=== PATIENT | female | born 1960 | race Hispanic/Latino ===

== ENCOUNTER → 2023-09-30 10:33 | Outpatient (REF) | payer BC, SELFPAY ==
[2023-09-30 11:34] LABS: Erythrocyte Sed Rate 5 mm/hour (0-20)
[2023-09-30 12:39] LABS: C-Reactive Protein < 5.00 mg/L (0.0-10.00)
[2023-09-30 12:41] LABS: ALT (SGPT) 18 U/L (0-35); AST (SGOT) 19 U/L (14-36); Albumin 4.6 g/dl (3.5-5.0); Alkaline Phosphatase 78 U/L (38-126); Blood Urea Nitrogen 13 mg/dl (7-17); Calcium 9.4 mg/dl (8.4-10.2); Carbon Dioxide 25 mmol/L (22-30); Chloride 108 mmol/L (98-107); Glucose 86 mg/dl (70-99); HDL Cholesterol 50 mg/dl; LDL Cholesterol, Calculated 142 mg/dl; Potassium 4.4 mmol/L (3.5-5.1); Sodium 140 mmol/L (135-145); Total Bilirubin 0.9 mg/dl (0.2-1.3); Total Cholesterol 220 mg/dl (50-199); Total Protein 6.5 g/dl (6.3-8.2); Triglyceride 142 mg/dl (10-149); Very Low Density Lipoprotein 28 mg/dl (0-30); eGFR > 60.00
[2023-09-30 13:09] LABS: TSH Reflex To Free T4 3.28 uIU/ml (0.47-4.68)
[2023-09-30 13:11] LABS: Glycohemoglobin (HgbA1c) 5.7 % (4.0-5.6)
[2023-09-30 13:28] LABS: Vitamin B12 285 pg/ml (239-931)
[2023-10-02 14:17] LABS: Lyme Antibody Screen, EIA Negative (Negative); Rheumatoid Agglutinin Less Than 10 IU (<10 IU)
[2023-10-02 21:00] LABS: Hepatitis C Antibody Negative (Negative)
== END ==
LOC: REG 10:33
PROVIDERS: ATTENDING PHYSICIAN Internal Medicine
DX: M79.18 Myalgia, other site (principal); E78.00 Pure hypercholesterolemia, unspecified; M25.50 Pain in unspecified joint; Z11.59 Encounter for screening for other viral diseases; R73.9 Hyperglycemia, unspecified
CPT/HCPCS: 36415; 80053; 80061; 82607; 83036; 84443; 85652; 86140; 86430; 86618; 86803

== ENCOUNTER → 2024-04-09 15:02 | Outpatient (REF) | payer BC, SELFPAY | LOC: WDC 15:02 | PROVIDERS: ATTENDING PHYSICIAN Internal Medicine | DX: Z12.31 Encounter for screening mammogram for malignant neoplasm of breast (principal) | CPT/HCPCS: 77063; 77067 ==

== ENCOUNTER 2024-08-23 10:31 | Inpatient (IN) | payer BC, SELFPAY ==
[2024-08-21 17:14] VITALS: BP 140/87
--- NOTE | 2024-08-21 18:59 | ED.GENMED ---
History of Present Illness
General
Chief Complaint: Vascular Symptoms
Time Seen by Provider: 08/21/24 18:59
History of Present Illness
History of Present Illness:
TIME OF INITIAL EVALUATION
- 7 PM
REVIEW OF OLD RECORDS
- Patient has history of high blood pressure, hyperlipidemia
RADIOLOGY
- Ultrasound imaging obtained
CHIEF COMPLAINT(S)
Right leg numbness and weakness.
HISTORY OF PRESENT ILLNESS
The patient is a 64-year-old female presenting with right leg numbness and weakness. The symptoms began two days ago with the patient describing her leg as feeling 'asleep' and experiencing difficulty feeling the gas pedal while driving. She reports
that pressing the gas pedal results in cramping in the leg. The numbness and weakness extend from the foot up to the hip, but the leg is not painful. On physical examination, there is noted weakness in dorsiflexion, described by the patient as a
lack of strength to pull back towards the nose. She also describes a flopping sensation when walking. She denies any lower extremity swelling, chest pain, abdominal pain, or trouble breathing. She reports a family history of heart problems and
aneurysms, specifically on her mothers side. The patient has not experienced similar symptoms previously and is not aware of any diabetes mellitus.
ADDITIONAL HISTORY OBTAINED FROM SOURCES OTHER THAN THE PATIENT
According to the patient, a nurse advised her to seek emergency care due to her symptoms and her family history of cardiovascular issues.
PHYSICAL EXAM
- Neurological: The patient has clear motor deficit in L5 distribution in the right lower extremity, mild sensory deficits to the anterior aspect of the right ankle, good strength in an S1 distribution and there is very good strength proximally
- Vascular: Pulses in dorsal pedal and posterior tibial regions are palpable and strong bilaterally.
- General: Well appearing in no distress
- HEENT: Moist oral mucosa
- Cardiovascular: No murmurs, normal heart rate, regular rhythm, No chest wall tenderness
- Pulmonary: No respiratory distress, breath sounds are clear and equal
- Abdomen: Soft with no peritoneal signs, no tenderness
- Neurologic: Excellent strength all extremities, no coordination deficits
- Psychiatric: Appropriate mental status, normal insight and judgement
- Extremities: Nontender, no edema, moves all extremities equally
- Skin: No rash, no lesions
DIFFERENTIAL DIAGNOSIS
The Differential Diagnosis includes, in no particular order and is not limited to:
1. Lumbar radiculopathy
2. Peripheral neuropathy
3. Lumbar spinal stenosis
4. Herniated lumbar disc
5. Foot drop due to peroneal nerve injury
6. Transient ischemic attack (although unlikely given symptoms)
7. Lumbosacral plexopathy
8. Multiple sclerosis
9. Peripheral artery disease (excluded by examination findings)
10. Functional neurological disorder
RADIOLOGY
- CT head shows no acute abnormality; ultrasound right lower extremity shows no DVT
EKG
- Not indicated
LABS
- CBC unremarkable, chemistries unremarkable
UPDATE
-ASSESSMENT
Patient presents with right leg numbness and weakness for two days without pain but with weakness in dorsiflexion, suggesting possible neurologic etiology.
DISPOSITION
Admission to the hospital service planned for further evaluation and management.
MANAGEMENT OF THE PATIENTS CARE WAS DISCUSSED WITH
Dr. Manriquez and Dr. Canela, on-call neurosurgeon, regarding imaging and admission plan.
MEDICATION RECONCILIATION
Administered Decadron 10 milligrams IV once, then planned for 4 milligrams every six hours.
MEDICAL DECISION MAKING
1. Number & Complexity of Problems:
- Considered differential diagnoses include lumbar radiculopathy, peripheral neuropathy, lumbar spinal stenosis, herniated lumbar disc, foot drop due to peroneal nerve injury, transient ischemic attack, and multiple sclerosis.
2. Data Reviewed:
- Discussions with Dr. Manriquez and Dr. Canela regarding imaging and admission.
3. Risk: High-risk neurologic evaluation considered due to symptoms and possible etiologies.
PATIENT EDUCATION AND COUNSELING
Discussed the possibility of staying at [facility] for MRI tomorrow and the plan for IV steroid administration.
PATHOLOGIES TO CONSIDER
- Lumbar radiculopathy
- Peripheral neuropathy
- Spinal pathology (herniated disc, stenosis)
- Neurologic emergencies (possible multiple sclerosis onset, transient ischemic attack)
FOLLOW-UP INSTRUCTIONS
Pending MRI and further evaluation following admission, with continued neurologic observation.
Past History
Past History
ED Past Medical History: HTN and Other (Ovarian cyst, migraines)
ED Past Surgical History: Cholecystectomy, and Gynecological (ovarian surgery)
Social History
Tobacco: Non-smoker
Alcohol: None
Drug: None
Personal:
Living: with family
Employment: Employed
Phy Exam
Physical Exam
Physical Exam:
See HPI
Course
Orders/Labs/Results
Orders:
Orders
08/21/24 17:17
US Periph Venous LOWER Ext RT Urgent
Comment:
Reason For Exam: calf pain
08/21/24 19:36
Dexamethasone Sod Phosphate [Decadron] 10 mg IV NOW STA
08/21/24 19:48
CT Head W/o Iv Contrast Urgent
Comment:
Reason For Exam: RLE weakness
08/21/24 19:51
Basic Metabolic Panel Urgent
Complete Blood Count/With Diff Urgent
Abnormal Lab Results
08/21/24
19:51
MCV 79.2 L fL
(81.0-99.0)
MCH 26.1 L pg
(27.0-31.0)
MCHC 32.9 L g/dL
(33.0-37.0)
MPV 11.0 H fL
(7.4-10.4)
Absolute Monos (auto) 0.7 H 10^3/uL
(0.1-0.6)
Monocytes % 9.4 H %
(1.7-9.3)
Chloride 112 H mmol/L
(98-107)
BUN 24 H mg/dl
(7-17)
Glucose 112 H mg/dl
(70-99)
08/21/24 19:51
08/21/24 19:51
Vital Signs
Initial and Last Documented VS:
Initial Vital Signs
Temp Pulse Resp BP Pulse Ox
36.9 C 84 16 140/87 98
08/21/24 17:14 08/21/24 17:14 08/21/24 17:14 08/21/24 17:14 08/21/24 17:14
Last Documented Vital Signs
Temp Pulse Resp BP Pulse Ox
36.9 C 75 18 149/85 98
08/21/24 17:14 08/21/24 20:21 08/21/24 20:21 08/21/24 20:21 08/21/24 20:21
*Pulse Oximetry
SaO2: 98
Oxygen Mode of Delivery: Room air
Patient hypoxic: no
*Critical Care Note
Total Time (30-74mins, 75-104mins- exclusive of procedures): Not Applicable
ED Attending Note
-
Portions of this chart may have been created with voice recognition software.� Occasional wrong word or��sound alike� substitutions may have occurred due to the inherent limitations of voice recognition software.
Discharge Plan
Departure
Patient Disposition: Admit
Date of Disposition: 08/21/24
Time of Disposition: 20:33
Presentation/result/management discussed w/ accepting MD/DO: Hospitalist
Patient with high blood pressure during this ER visit?: Yes
Discharge Problem:
Right peroneal nerve palsy
Prescriptions:
No Action
multivitamin [One-A-Day Essential] 1 EACH tablet
1 ea PO DAILY
atorvastatin 40 MG tablet
40 mg PO QPM
famotidine [Pepcid AC] 10 MG tablet
10 mg PO HS
ascorbic acid (vitamin C) [Vitamin C] 500 MG tablet
500 mg PO QPM
cholecalciferol (vitamin D3) [Vitamin D3] 400 UNITS tablet
400 unit PO HS
amlodipine [Norvasc] 10 mg Tablet
10 mg PO QPM
Referrals:
Pascual Chowdhury DO [Family Provider, Internal Medicine]
Interventions
Interventions:
*Risk Screen - Suicide Last Done: 08/21/24 20:22
*General Assessment Last Done: 08/21/24 20:22
*Neglect/Abuse Screening Last Done: 08/21/24 20:22
*ED- Fall Risk Assessment Last Done: 08/21/24 20:22
*ED COVID-19 Vaccine History Last Done: 08/21/24 20:22
ED- Cardiac Assessment Last Done: 08/21/24 20:23
ED- Pulmonary Assessment Last Done: 08/21/24 20:23
ED-Peripheral Vascular Assessment Last Done: 08/21/24 20:23
ED-Skin Assessment Last Done: 08/21/24 20:23
Discharge Date and Time
Print Language: SLOVAK
[2024-08-21] MEDS: DECADRON 10 MG IV (19:54)
[2024-08-21 19:56] VITALS: BMI 26.0
[2024-08-21 19:58] LABS: % Basophils 0.4 % (0-2); % Eosinophils 2.3 % (0-6); % Immature Granulocytes 0.3 % (0-0.5); % Lymphocytes 25.6 % (20.5-51.1); % Monocytes 9.4 % (1.7-9.3); Absolute Eosinophils 0.2 10^3/uL (0-0.7); Absolute Lymphocytes 1.8 10^3/uL (1.2-3.4); Absolute Monocytes 0.7 10^3/uL (0.1-0.6); Absolute Neutrophils 4.3 10^3/uL (1.4-6.5); Hematocrit 41.9 % (37.0-47.0); Hemoglobin 13.8 g/dL (12.0-16.0); Mean Corp Hgb Conc. 32.9 g/dL (33.0-37.0); Mean Corpuscular Hgb 26.1 pg (27.0-31.0); Mean Corpuscular Volume 79.2 fL (81.0-99.0); Nucleated Red Blood Cells % 0 %; Platelet Count 159 10^3/uL (130-400); Red Blood Cell Count 5.29 10^6/uL (4.20-5.40); Red Cell Dist. Width 13.7 % (11.5-14.5); White Blood Cell Count 6.9 10^3/uL (4.8-10.8)
[2024-08-21 20:18] LABS: Blood Urea Nitrogen 24 mg/dl (7-17); Calcium 9.3 mg/dl (8.4-10.2); Carbon Dioxide 25 mmol/L (22-30); Chloride 112 mmol/L (98-107); Estimated Creatinine Clearance 63 ml/min; Glucose 112 mg/dl (70-99); Potassium 4.2 mmol/L (3.5-5.1); Sodium 142 mmol/L (135-145); eGFR > 60.00
[2024-08-21 20:21] VITALS: BP 149/85
--- NOTE | 2024-08-21 21:17 | HPS.HSE ---
Family Physician
-
Family Physician: Pascual Chowdhury
Chief Complaint
-
tingling
History of Present Illness
64-year-old female past medical history of hypertension, hyperlipidemia, migraines presenting with bilateral numbness and tingling in the lower extremities. 3 days ago she developed numbness and tingling in her right toes that extends up the
lateral part of her calf to the lateral part of the knee. She has a foot drop and difficulty lifting her foot up off the gas pedal. Symptoms are getting worse. She notes that although the right side is worse he also has some tingling in the left
toes but denies any weakness or progression of symptoms on that side.
She did have some back pain a few days ago but denies any chronic back pain. She denies any back pain currently. Denies any fevers or chills. Denies any weight loss. Denies any numbness or tingling in the genital or anal area.
She has been having urinary incontinence for the past year.
There is no family history of neurological problems such as multiple sclerosis.
Denies smoking or alcohol use.
Medical History
Past Medical History
Past Medical History: Reports Other (hypertension, hyperlipidemia, migraines)
Past Surgical History: Reports None
Social History
Tobacco: Non-smoker
Alcohol: None
Drug: None
Family History
Family History: Not pertinent
Allergies / Home Medications
Allergies reflects when Allergies were last updated in [employer].
Home Medications with original date entered in [facility]
Allergy/Medication List:
Allergies
Allergy/AdvReac Type Severity Reaction Status Date / Time
No Known Allergies Allergy Verified 08/21/24 17:17
Home Medications
multivitamin (One-A-Day Essential tablet) 1 ea PO DAILY 06/08/15
ascorbic acid (vitamin C) 500 mg tablet (Vitamin C) 500 mg PO QPM 07/02/21
atorvastatin 40 mg tablet 40 mg PO QPM 07/02/21
cholecalciferol (vitamin D3) 10 mcg (400 unit) tablet (Vitamin D3) 400 unit PO HS 07/02/21
famotidine 10 mg tablet (Pepcid AC) 10 mg PO HS 07/02/21
amlodipine 10 mg tablet (Norvasc) 10 mg PO QPM 08/21/24
Review of Systems
-
History Source: Patient
A 12 point ROS was completed and negative except as noted: Yes
Constitutional: Reports No Symptoms
EENT: Reports No Symptoms
Respiratory: Reports No Symptoms
Cardiac: Reports No Symptoms
Abdomen/GI: Reports No Symptoms
: Reports No Symptoms
Musculoskeletal: Reports No Symptoms
Skin: Reports No Symptoms
Neurological: Reports See HPI
Endocrine: Reports No Symptoms
Hematologic/Lymphatic: Reports No Symptoms
Psych: Reports No Symptoms
Physical Exam
Vital Signs
Vital Signs
Temp Pulse Resp BP Pulse Ox
98.4 F 75 18 149/85 98
08/21/24 17:14 08/21/24 20:21 08/21/24 20:21 08/21/24 20:21 08/21/24 20:21
Physical Exam
General: Well Developed, Well Nourished and No Apparent Distress
HEENT: NormoCephalic, Moist mucous membranes and Atraumatic
Respiratory: Clear
Cardiac: S1/S2 and Regular Rhythm; No Murmur or Rub
GI: Soft, Non Tender, Non Distended and Normal Bowel Sounds; No Organomegaly
Rectal: Deferred by Provider
Musculoskeletal: No Clubbing, No Cyanosis and No Edema
Skin: No Rash
Neuro: Nonfocal/grossly intact and Other (right foot drop )
Laboratory Results
-
08/21/24 19:51
08/21/24 19:51
Data Reviewed
-
Lab Data: Labs Reviewed by me
Old Records: Reviewed
Impression/Plan
-
IMPRESSION:
PLAN:
# Progressive bilateral lower extremity numbness and tingling/with weakness of dorsiflexion of right foot
-Foot drop on examination
- Initially thought could be peroneal nerve palsy on the right however patient later admitted to left-sided symptoms as well although milder and without weakness on that side
- Given recent back pain, urinary incontinence for the past year entertaining diagnoses such as lumbar spinal stenosis versus multiple sclerosis
- Check MRI lumbar spine with and without contra
-Check TSH, B12
- Neurology consulted
# Urinary incontinence for the past year
- May be related to above process
- Bladder scan protocol
Essential hypertension
- Continue amlodipine
Hyperlipidemia
- Continue statin
Migraines
Full code
DVT prophylaxis�SCDs
Regular diet
[2024-08-21 22:22] VITALS: BP 159/74
[2024-08-21] MEDS: PEPCID 10 MG PO (22:56)
[2024-08-21] MEDS: VITAMIN D3 (cholecalciferol) 10 MCG PO (22:57)
--- NOTE | 2024-08-22 03:05 | PTCARENOTE ---
Pt aaox3 able to make his needs known,denies pain.OOB with 1 person assist.Pt oriented to room & call dudley in reach.Plan of care continued on pt.
[2024-08-22 03:23] VITALS: BP 130/80
[2024-08-22] MEDS: TYLENOL 650 MG PO ×2 (06:21→17:14)
[2024-08-22 07:15] VITALS: BP 131/82
--- NOTE | 2024-08-22 08:01 | CON.NEURO ---
Consultation
Order
Date of Consultation: 08/22/24
Requesting Provider: Roland Monk MD
Reason for Consult: Numbness in the toes, weakness
Neurology Consultation Note.
HPI: This is a 64-year-old right-handed woman who presented to the [facility] on 08/21/2024 with motor and sensory symptoms.
The patient reports that last Monday, her right foot started feeling 'asleep, heavy, and numb'. The sensation progressively ascended up her left lateral lower leg. By Monday, she noticed foot drop while walking. On Monday morning, the symptoms
worsened, with increased heaviness, numbness, and weakness in her right foot. She experienced difficulty feeling the car pedal properly while driving and had cramps. The numbness in her right leg has been constant since onset. She also reports
numbness in the toes of both feet, which started on the same day as her right foot symptoms. The patient denies any issues with balance, tingling or numbness in her hands, back pain, radicular symptoms, changes in swallowing, vision or breathing
difficulties. No falls, recent vaccination, URI or diarrheal illness.
The patient mentions having urinary incontinence for the past year, particularly when sneezing or coughing.
ER VS: 140/87, 84, afebrile
EKG:
PDMP:none
Labs: Glucose�112, MCV�79.2
CT head wo contrast
LS spine MRI w/wo joseph-mild bilateral L4-5 foraminal narrowing.
MAR: Dexamethasone 10 mg given on 08/21/24 at 19:54.
PMH: HTN, DLP, IGT, vit D deficiency
PSH: Bilateral cataract surgery, left foot ORIF
SH: , lives with family, works at [employer]; no history excessive alcohol use,
FH: mother at 91, had hammertoes;Brother from aortic aneurysm
All:NKDA
ROS: Constitutional: Negative. Negative for chills, fever and unexpected weight change.
HENT: Negative for ear pain, hearing loss, tinnitus and trouble swallowing.
Eyes: Negative. Negative for photophobia, pain and visual disturbance.
Respiratory: Negative for cough, choking and shortness of breath.
Cardiovascular: Negative for chest pain, palpitations and leg swelling.
Gastrointestinal: Negative for abdominal pain and vomiting.
Endocrine: Negative. Negative for cold intolerance.
Genitourinary: Positive for chronic intermittent urinary incontinence
Musculoskeletal: Negative for back pain, gait problem, neck pain and neck stiffness.
Skin: Negative for rash.
Allergic/Immunologic: Negative. Negative for immunocompromised state.
Neurological: Positive for numbness and heaviness in right foot and leg, numbness in toes of left foot. Negative for tingling or numbness in hands.
Psychiatric/Behavioral: Negative for behavioral problems, confusion and hallucinations.
General: Well developed. In no acute distress.
Cardio: Regular rate and rhythm without murmur. Extremities are without cyanosis or edema.
Neuro:
Mental Status: Alert, oriented to person, place, and date. Normal attention and recall. Good fund of knowledge. Follows complex requests across the midline. Comprehension, naming, and repetition intact. Immediate and delayed recall 3/3.
Cranial Nerves: Pupils are equally round. EOMs full. Visual vasquez full to confrontation. No ptosis. No nystagmus. V1-V3 intact to light touch and pinprick bilaterally, symmetric. Face symmetric. Normal hearing AU. The palate elevated well.
SCMs and traps 5/5. Tongue midline. No dysarthria.
Motor: Normal bulk and tone. No pronator or arm drift. Strength 5/5 throughout except for right dorsiflexion and right foot eversion 4 out of 5. No clonus.
Reflexes: 2+ throughout the upper extremities and 2+knees. AJs-limited exam. Plantar responses flexor bilaterally.
Sensory: Normal pinprick, vibration and JPS.
Coordination: No dysmetria or tremor.
Gait: deferred
Bilateral pes cavus and hammertoes
Assessment and Plan:
I. 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 Differential diagnosis includes autoimmune versus metabolic less likely toxic or infectious.
II. Bilateral pes cavus and hammertoes
III.HTN
-Telemetry monitoring
-Fall precautions
-CSF(cell count, protein, glucose, cx)
-PVR
-No indications for steroid therapy
-MRI T spine w/wo joseph
-Please follow-up requested serologies
-PT
-May consider immunotherapy based on CSF results
-DVT prophylaxis.
I personally reviewed all radiology and labs along with past medical records pertinent to current medical problems. Total time spent in patient care is 60 minutes.
Thank you for allowing us to participate in the care of this patient. We will continue to follow. Please do not hesitate to contact us with any questions or concerns.
Subjective/Objective
Subjective Data
Date of Service: August 22, 2024
Objective Data
Vital Signs
Temp Pulse Resp BP Pulse Ox
36.5 C 89 14 131/82 94
08/22/24 07:15 08/22/24 07:15 08/22/24 07:15 08/22/24 07:15 08/22/24 07:15
Sodium 142 mmol/L (135-145) 08/21/24 19:51
Potassium 4.2 mmol/L (3.5-5.1) 08/21/24 19:51
BUN 24 mg/dl (7-17) H 08/21/24 19:51
Glucose 112 mg/dl (70-99) H 08/21/24 19:51
Calcium 9.3 mg/dl (8.4-10.2) 08/21/24 19:51
Vitamin B12 Cancelled 08/22/24 06:00
Patient Allergies
No Known Allergies Allergy (Verified 08/21/24 17:17)
Medications
-
Active Medications
Generic Name Dose Route Start Last Admin
Trade Name Freq PRN Reason Stop Dose Admin
Acetaminophen 650 mg 08/22/24 05:57 08/22/24 06:21
Acetaminophen 325 Mg Tablet PO 09/19/24 05:56 650 mg
Q4HPRN PRN Administration
mild pain/MARTIN/temp>100.5
Amlodipine Besylate 10 mg 08/22/24 18:00
Amlodipine 10 Mg Tablet PO 09/19/24 17:59
QPM PARIS
Ascorbic Acid 500 mg 08/22/24 18:00
Ascorbic Acid 500 Mg Tablet PO 09/19/24 17:59
QPM PARIS
Atorvastatin Calcium 40 mg 08/22/24 18:00
Atorvastatin (Lipitor) 40 Mg Tablet PO 09/19/24 17:59
QPM PARIS
Cholecalciferol 10 mcg 08/21/24 22:12 08/21/24 22:57
Cholecalciferol (Vitamin D3) 10 Mcg Tablet (400 Units) PO 09/18/24 22:11 10 mcg
HS PARIS Administration
Famotidine 10 mg 08/21/24 22:12 08/21/24 22:56
Famotidine 20 Mg Tablet PO 09/18/24 22:11 10 mg
HS PARIS Administration
Multivitamins Therapeutic 1 tablet 08/22/24 08:00
Multivitamin Tablet PO 09/19/24 07:59
DAILY PARIS
Sodium Chloride 0 flush 08/21/24 22:00
Sodium Chloride 0.9% (Flush) Syringe IV 09/18/24 21:59
PER PROTOCOL PARIS
Home Medications
�Medication �Instructions �Recorded
multivitamin (One-A-Day Essential 1 ea PO DAILY 06/08/15
tablet)
ascorbic acid (vitamin C) 500 mg 500 mg PO QPM 07/02/21
tablet (Vitamin C)
atorvastatin 40 mg tablet 40 mg PO QPM 07/02/21
cholecalciferol (vitamin D3) 10 400 unit PO HS 07/02/21
mcg (400 unit) tablet (Vitamin D3)
famotidine 10 mg tablet (Pepcid AC) 10 mg PO HS 07/02/21
amlodipine 10 mg tablet (Norvasc) 10 mg PO QPM 08/21/24
[2024-08-22 09:06] LABS: % Basophils 0.2 % (0-2); % Immature Granulocytes 0.3 % (0-0.5); % Lymphocytes 8.5 % (20.5-51.1); % Monocytes 2.2 % (1.7-9.3); % Neutrophils 88.8 % (42.2-75.2); Absolute Lymphocytes 0.8 10^3/uL (1.2-3.4); Absolute Monocytes 0.2 10^3/uL (0.1-0.6); Absolute Neutrophils 8.1 10^3/uL (1.4-6.5); Hematocrit 43.1 % (37.0-47.0); Hemoglobin 14.1 g/dL (12.0-16.0); Mean Corp Hgb Conc. 32.7 g/dL (33.0-37.0); Mean Corpuscular Hgb 25.5 pg (27.0-31.0); Mean Corpuscular Volume 77.8 fL (81.0-99.0); Mean Platelet Volume 10.9 fL (7.4-10.4); Nucleated Red Blood Cells % 0 %; Platelet Count 173 10^3/uL (130-400); Red Blood Cell Count 5.54 10^6/uL (4.20-5.40); Red Cell Dist. Width 13.3 % (11.5-14.5); White Blood Cell Count 9.1 10^3/uL (4.8-10.8)
[2024-08-22 09:41] LABS: ALT (SGPT) 19 U/L (0-35); AST (SGOT) 19 U/L (14-36); Albumin 4.4 g/dl (3.5-5.0); Alkaline Phosphatase 64 U/L (38-126); Blood Urea Nitrogen 19 mg/dl (7-17); Calcium 9.6 mg/dl (8.4-10.2); Carbon Dioxide 21 mmol/L (22-30); Chloride 114 mmol/L (98-107); Estimated Creatinine Clearance 73 ml/min; Glucose 181 mg/dl (70-99); Potassium 4.1 mmol/L (3.5-5.1); Sodium 142 mmol/L (135-145); Total Bilirubin 0.5 mg/dl (0.2-1.3); Total Protein 6.6 g/dl (6.3-8.2); eGFR > 60.00
[2024-08-22] MEDS: THERAGRAN 1 TABLET PO (09:45)
[2024-08-22 10:33] LABS: C-Reactive Protein < 5.00 mg/L (0.0-10.00)
[2024-08-22 10:53] LABS: TSH Reflex To Free T4 0.87 uIU/ml (0.47-4.68)
[2024-08-22 11:12] LABS: Vitamin B12 349 pg/ml (239-931)
[2024-08-22 11:28] LABS: Erythrocyte Sed Rate 6 mm/hour (0-20)
[2024-08-22 11:48] VITALS: BP 114/76
[2024-08-22 15:25] VITALS: BP 140/76
--- NOTE | 2024-08-22 15:55 | W.PN.HOSP.TC ---
Today's Communication/Plan
-
Assessment / Plan
Assessment / Plan
General: No Apparent Distress, Comfortable and Conversant
HEENT: NormoCephalic, Moist mucous membranes, Atraumatic
Respiratory: Clear and Non Labored Respirations
Cardiac: S1/S2 and Regular Rhythm; No Rub or Gallop
GI: Soft, Non Tender, Non Distended and Normal Bowel Sounds
Musculoskeletal: No Edema, no deformity
Skin: Warm and dry
: NO Agudelo
Neuro: Awake, Alert, Nonfocal/grossly intact
Psych: Calm and Intact Judgment/Insight
Ms. Strickland is a 64-year-old female with a medical history of hypertension, cervical stenosis, and migraines who presented with paresthesias of her bilateral feet with right foot drop. Her symptoms began 3 days prior to arrival in her toes
and has since progressed to her bilateral calves now with right foot drop. She also reports intermittent urinary incontinence. She has been admitted for further evaluation and management of her neurologic symptoms.
Bilateral lower extremity paresthesias:
- With right foot drop
- Reports intermittent urinary incontinence
- Prior history of left upper extremity paresthesia and weakness a few months ago that resolved spontaneously
- Neurology following, currently no indication for steroid therapy
- Head CT and lumbar MRI unremarkable
- Will check MRI T-spine
- Lumbar puncture
- May require immunotherapy depending on the results of the CSF studies
- Check PVRs
- Eventual PT/OT after above-mentioned workup
Hypertension:
- Continue home amlodipine
DVT prophylaxis: SCDs
CODE STATUS: Full code
Total time spent on today's encounter was 45 minutes
Anticipated Discharge: > 48 hours
Subjective/Interval History
-
Date of Service: August 22, 2024
Patient was seen and examined at bedside this morning. She continues to have right lower extremity numbness and foot drop although she says it has somewhat improved from yesterday. Also reports intermittent urinary incontinence, had a history of
left upper extremity numbness and weakness a few months ago that resolved spontaneously.
Objective Data
-
Labs:
Laboratory Results
08/22/24
08:51
WBC 9.1
Hgb 14.1
Hct 43.1
Plt Count 173
Sodium 142
Potassium 4.1
Chloride 114 H
Carbon Dioxide 21 L
BUN 19 H
Creatinine 0.6
Glucose 181 H
Calcium 9.6
Total Bilirubin 0.5
AST 19
ALT 19
Alkaline Phosphatase 64
Vital Signs:
Vital Signs
Temp Pulse Resp BP Pulse Ox
98 F 94 16 140/76 96
08/22/24 15:25 08/22/24 15:25 08/22/24 15:25 08/22/24 15:25 08/22/24 15:25
I&O
08/21/24 08/22/24 08/23/24
06:59 06:59 06:59
Intake Total 480 / 480
Balance 480 / 480
Review of Systems
-
History Source: Patient
Neuro: Reports Weakness (Right foot dorsiflexion weakness) and Numbness (Bilateral foot paresthesias, right greater than left)
Physical Exam
-
General: No Apparent Distress
[2024-08-22] MEDS: VITAMIN C 500 MG PO (17:08)
[2024-08-22] MEDS: NORVASC 10 MG PO (17:08)
[2024-08-22] MEDS: LIPITOR 40 MG PO (17:08)
--- NOTE | 2024-08-22 17:10 | CM ---
Met with patient to obtain information for assessment. Patient stated that she lives with her and two adult children in a two story [facility] with two steps to enter. She described herself as independent with her ADLs, personal care, bathing
and dressing. 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 She has two jobs, one at in [employer]. She drives and can get to all of her appointments and does all of her own shopping. She has no DME, she has never had VN or been to a SNF.
Patient has a prescription plan and uses, [facility] in [address] for all of her medications.
Patient's PCP is, Pascual Chowdhury.
Plan: Case management will continue to follow and assist with discharge planning. Patient would like to return home when stable. [employer] letter reviewed, signed and is on chart.
[2024-08-22 19:15] VITALS: BP 120/64
[2024-08-22] MEDS: PEPCID 10 MG PO (20:46)
[2024-08-22] MEDS: VITAMIN D3 (cholecalciferol) 10 MCG PO (20:47)
[2024-08-22 23:28] VITALS: BP 115/63
[2024-08-23 03:16] VITALS: BP 117/62
[2024-08-23 07:05] VITALS: BP 123/67
--- NOTE | 2024-08-23 08:06 | W.PN.NEURO.1 ---
Today's Communication / Plan
-
.
Subjective/Objective
Subjective Data
Date of Service: August 23, 2024
Neurology follow-up note.
Ms. Strickland states that her right foot feels 'better' than it was.' The left foot, is now reported as 'better' and no longer numb.
The patient reports having a headache yesterday. The patient receives monthly Aimovig injections for migraine prevention, which has reduced the frequency of headaches. However, when migraines do occur, they can last up to 3 days and are described as
severe.
Ms. Byrne patient expresses interest in establishing care with a neurologist for ongoing management of both the neuropathy and migraines. She previously saw Dr. Cantrell for migraines.
T spine MRI- T11-T12 there is a right subarticular disc extrusion with resultant effacement of the anterolateral thecal sac without significant stenosis.
Labs�normal ESR, vitamin B12�349, normal TSH.
PMH: HTN, DLP, IGT, vit D deficiency
PSH: Bilateral cataract surgery, left foot ORIF
SH: , lives with family, works at [employer]; no history excessive alcohol use,
FH: mother at 91, had hammertoes;Brother from aortic aneurysm
All:NKDA
ROS: Constitutional: Negative. Negative for chills, fever and unexpected weight change.
HENT: Negative for ear pain, hearing loss, tinnitus and trouble swallowing.
Eyes: Negative. Negative for photophobia, pain and visual disturbance.
Respiratory: Negative for cough, choking and shortness of breath.
Cardiovascular: Negative for chest pain, palpitations and leg swelling.
Gastrointestinal: Negative for abdominal pain and vomiting.
Endocrine: Negative. Negative for cold intolerance.
Genitourinary: Positive for chronic intermittent urinary incontinence
Musculoskeletal: Negative for back pain, gait problem, neck pain and neck stiffness.
Skin: Negative for rash.
Allergic/Immunologic: Negative. Negative for immunocompromised state.
Neurological: Positive for numbness and heaviness in right foot and leg
Psychiatric/Behavioral: Negative for behavioral problems, confusion and hallucinations.
General: Well developed. In no acute distress.
Cardio: Regular rate and rhythm without murmur. Extremities are without cyanosis or edema.
Neuro:
Mental Status: Alert, oriented to person, place, and date. Normal attention and recall. Good fund of knowledge. Follows complex requests across the midline. Comprehension, naming, and repetition intact.
Cranial Nerves: Pupils are equally round. EOMs full. Visual vasquez full to confrontation. No ptosis. No nystagmus. V1-V3 intact to light touch and pinprick bilaterally, symmetric. Face symmetric. Normal hearing AU. The palate elevated well.
SCMs and traps 5/5. Tongue midline. No dysarthria.
Motor: Normal bulk and tone. No pronator or arm drift. Strength 5/5 throughout except for right dorsiflexion and right foot eversion 4 out of 5. No clonus.
Reflexes: 2+ throughout the upper extremities and 2+knees. AJs-limited exam. Plantar responses flexor bilaterally.
Sensory: Normal vibration at the toes bilaterally
Coordination: No dysmetria or tremor.
Gait: deferred
Bilateral pes cavus and hammertoes
Assessment and Plan:
I. Subacute sensorimotor asymmetric polyneuropathy.
III.HTN
-Telemetry monitoring
-Fall precautions
-CSF(cell count, protein, glucose, cx)
-Please follow-up requested serologies
-PT
-DVT prophylaxis.
I personally reviewed all radiology and labs along with past medical records pertinent to current medical problems. Total time spent in patient care is 35 minutes.
Thank you for allowing us to participate in the care of this patient. We will continue to follow. Please do not hesitate to contact us with any questions or concerns.
Objective Data
Vital Signs
Temp Pulse Resp BP Pulse Ox
36.5 C 76 16 117/62 97
08/23/24 03:16 08/23/24 03:16 08/23/24 03:16 08/23/24 03:16 08/23/24 03:16
Lab Results
08/22/24 08:51
08/22/24 08:51
Sodium 142 mmol/L (135-145) 08/22/24 08:51
Potassium 4.1 mmol/L (3.5-5.1) 08/22/24 08:51
BUN 19 mg/dl (7-17) H 08/22/24 08:51
Glucose 181 mg/dl (70-99) H 08/22/24 08:51
Calcium 9.6 mg/dl (8.4-10.2) 08/22/24 08:51
Vitamin B12 349 pg/ml (239-931) 08/22/24 08:51
Patient Allergies
No Known Allergies Allergy (Verified 08/21/24 17:17)
Vital Signs and Labs
-
Vital Signs and Labs:
Vital Signs
Temp Pulse Resp BP Pulse Ox
36.7 C 64 16 123/67 94
08/23/24 07:05 08/23/24 07:05 08/23/24 07:05 08/23/24 07:05 08/23/24 07:05
Lab Results
08/22/24 08:51
08/22/24 08:51
PT 13.0 Sec (11.4-14.6) 08/23/24 08:56
INR 0.95 08/23/24 08:56
Sodium 142 mmol/L (135-145) 08/22/24 08:51
Potassium 4.1 mmol/L (3.5-5.1) 08/22/24 08:51
BUN 19 mg/dl (7-17) H 08/22/24 08:51
Glucose 181 mg/dl (70-99) H 08/22/24 08:51
Calcium 9.6 mg/dl (8.4-10.2) 08/22/24 08:51
Vitamin B12 349 pg/ml (239-931) 08/22/24 08:51
Medications
-
Medications:
Generic Name Dose Route Start Last Admin
Trade Name Freq PRN Reason Stop Dose Admin
Acetaminophen 650 mg 08/22/24 05:57 08/22/24 17:14
Acetaminophen 325 Mg Tablet PO 09/19/24 05:56 650 mg
Q4HPRN PRN Administration
mild pain/MARTIN/temp>100.5
Amlodipine Besylate 10 mg 08/22/24 18:00 08/22/24 17:08
Amlodipine 10 Mg Tablet PO 09/19/24 17:59 10 mg
QPM PARIS Administration
Ascorbic Acid 500 mg 08/22/24 18:00 08/22/24 17:08
Ascorbic Acid 500 Mg Tablet PO 09/19/24 17:59 500 mg
QPM PARIS Administration
Atorvastatin Calcium 40 mg 08/22/24 18:00 08/22/24 17:08
Atorvastatin (Lipitor) 40 Mg Tablet PO 09/19/24 17:59 40 mg
QPM PARIS Administration
Cholecalciferol 10 mcg 08/21/24 22:12 08/22/24 20:47
Cholecalciferol (Vitamin D3) 10 Mcg Tablet (400 Units) PO 09/18/24 22:11 10 mcg
HS PARIS Administration
Famotidine 10 mg 08/21/24 22:12 08/22/24 20:46
Famotidine 20 Mg Tablet PO 09/18/24 22:11 10 mg
HS PARIS Administration
Multivitamins Therapeutic 1 tablet 08/22/24 08:00 08/23/24 09:14
Multivitamin Tablet PO 09/19/24 07:59 1 tablet
DAILY PARIS Administration
Sodium Chloride 0 flush 08/21/24 22:00
Sodium Chloride 0.9% (Flush) Syringe IV 09/18/24 21:59
PER PROTOCOL PARIS
Home Medications
-
Home Medications
multivitamin (One-A-Day Essential tablet) 1 ea PO DAILY 06/08/15
ascorbic acid (vitamin C) 500 mg tablet (Vitamin C) 500 mg PO QPM 07/02/21
atorvastatin 40 mg tablet 40 mg PO QPM 07/02/21
cholecalciferol (vitamin D3) 10 mcg (400 unit) tablet (Vitamin D3) 400 unit PO HS 07/02/21
famotidine 10 mg tablet (Pepcid AC) 10 mg PO HS 07/02/21
amlodipine 10 mg tablet (Norvasc) 10 mg PO QPM 08/21/24
[2024-08-23] MEDS: THERAGRAN 1 TABLET PO (09:14)
[2024-08-23 09:29] LABS: INR 0.95
[2024-08-23 11:45] VITALS: BP 111/64
[2024-08-23 12:29] LABS: Spinal Fluid Glucose 62 mg/dl (40-70); Spinal Fluid Protein 41 mg/dl (12-60)
[2024-08-23 12:36] LABS: CSF Clarity Clear; CSF Color Colorless; CSF Tube # 1
[2024-08-23 12:37] LABS: CSF Color Colorless; CSF Tube # 4; CSF Tube # Clarity Clear; Red Cell Count/CSF 2 mm^3; White Blood Cell Count/CSF 4 mm^3 (0-5); White Cell Count/CSF 1 mm^3 (0-5)
[2024-08-23 12:39] LABS: Red Cell Count/CSF 3 mm^3
--- NOTE | 2024-08-23 13:55 | W.PN.HOSP.TC ---
Today's Communication/Plan
-
Assessment / Plan
Assessment / Plan
General: No Apparent Distress, Comfortable and Conversant
HEENT: NormoCephalic, Moist mucous membranes, Atraumatic
Respiratory: Clear and Non Labored Respirations
Cardiac: S1/S2 and Regular Rhythm; No Rub or Gallop
GI: Soft, Non Tender, Non Distended and Normal Bowel Sounds
Musculoskeletal: No Edema, no deformity
Skin: Warm and dry
: NO Agudelo
Neuro: Awake, Alert, paresthesia bilateral feet, mild weakness right dorsiflexion improved from yesterday
Psych: Calm and Intact Judgment/Insight
Ms. Strickland is a 64-year-old female with a medical history of hypertension, cervical stenosis, and migraines who presented with paresthesias of her bilateral feet with right foot drop. Her symptoms began 3 days prior to arrival in her toes
and has since progressed to her bilateral calves now with right foot drop. She also reports intermittent urinary incontinence. She has been admitted for further evaluation and management of her neurologic symptoms.
Bilateral lower extremity paresthesias:
- With right foot drop which appears to be improving
- Reports intermittent urinary incontinence
- Prior history of left upper extremity paresthesia and weakness a few months ago that resolved spontaneously
- Neurology following, currently no indication for steroid therapy
- Head CT and MRI of thoracolumbar spine without findings to explain symptoms
- Lumbar puncture today, follow-up results
- May require immunotherapy depending on the results of the CSF studies
- Check PVRs
- Eventual PT/OT after above-mentioned workup
Hypertension:
- Continue home amlodipine
DVT prophylaxis: SCDs
CODE STATUS: Full code
Total time spent on today's encounter was 45 minutes
Anticipated Discharge: 24 - 48 hours
Subjective/Interval History
-
Date of Service: August 23, 2024
Patient was seen and examined at bedside this morning. Reports improvement in lower extremity paresthesia and right foot drop. MRI results pending.
Objective Data
-
Labs:
Laboratory Results
08/23/24
08:56
PT 13.0
INR 0.95
Vital Signs:
Vital Signs
Temp Pulse Resp BP Pulse Ox
97.7 F 57 16 111/64 95
08/23/24 11:45 08/23/24 11:45 08/23/24 11:45 08/23/24 11:45 08/23/24 11:45
I&O
08/22/24 08/23/24 08/24/24
06:59 06:59 06:59
Intake Total 1560 / 1560
Balance 1560 / 1560
Review of Systems
-
History Source: Patient
All other systems: Reviewed and negative
Neuro: Reports Other (Bilateral foot paresthesias, right foot drop)
Physical Exam
-
General: No Apparent Distress
[2024-08-23 15:00] VITALS: BP 123/73
--- NOTE | 2024-08-23 16:45 | W.DCSUMMARY ---
Discharge Summary
Discharge Data
Date of Admission: 08/23/24
Date of Discharge: 08/23/24
Total time spent discharging patient (in min): 45
-
Pending Results: No
Hospital Course
Ms. Strickland is a 64-year-old female with a medical history of hypertension, cervical stenosis, and migraines who presented with paresthesias of her bilateral feet with right foot drop. Her symptoms began 3 days prior to arrival with numbness
in her toes that progressed to her bilateral calves with right foot drop. She reports acute onset left arm numbness and weakness a few months ago that resolved spontaneously. She says she was worked up at that time for a heart attack considering her
family history of CAD, and VT was ruled out. She also reports intermittent urinary incontinence. She was admitted for further evaluation and management of her neurologic symptoms.
CT head and MRI of thoracolumbar spine were unremarkable. Lumbar puncture was also unremarkable. There was no evidence of infection. She was evaluated by neurology who did not feel this was a central neuropathic process. No treatment with steroids
were indicated at this time. However, neurology did recommend outpatient follow up for EMG in 3 weeks for evaluation of polyneuropathy (possibly Eagchwf-Lbosa-Aojgx disease). She was medically stable at time of hospital discharge.
General: No Apparent Distress, Comfortable and Conversant
HEENT: NormoCephalic, Moist mucous membranes, Atraumatic
Respiratory: Clear and Non Labored Respirations
Cardiac: S1/S2 and Regular Rhythm; No Rub or Gallop
GI: Soft, Non Tender, Non Distended and Normal Bowel Sounds
Musculoskeletal: No Edema, no deformity
Skin: Warm and dry
: NO Agudelo
Neuro: Awake, Alert, paresthesia bilateral feet, mild weakness right dorsiflexion improved from yesterday
Psych: Calm and Intact Judgment/Insight
Discharge Plan
-
Patient Disposition: Home (Routine Discharge)
Discharge Diagnosis/Procedures: polyneuropathy
Diet: No restrictions
Activity: No restrictions
Activity Restrictions/Additional Instructions:
Ms. Strickland is a 64-year-old female with a medical history of hypertension, cervical stenosis, and migraines who presented with paresthesias of her bilateral feet with right foot drop. Her symptoms began 3 days prior to arrival with numbness
in her toes that progressed to her bilateral calves with right foot drop. She reports acute onset left arm numbness and weakness a few months ago that resolved spontaneously. She says she was worked up at that time for a heart attack considering her
family history of CAD, and VT was ruled out. She also reports intermittent urinary incontinence. She was admitted for further evaluation and management of her neurologic symptoms.
CT head and MRI of thoracolumbar spine were unremarkable. Lumbar puncture was also unremarkable. There was no evidence of infection. She was evaluated by neurology who did not feel this was a central neuropathic process. No treatment with steroids
were indicated at this time. However, neurology did recommend outpatient follow up for EMG in 3 weeks for evaluation of polyneuropathy (possibly Oaiwoav-Lcybt-Yajuz disease). She was medically stable at time of hospital discharge.
Referrals:
Pascual Chowdhury DO [Family Provider, Internal Medicine]
Kavita Segundo MD [Active, Neurology]
Prescriptions:
Continued
multivitamin [One-A-Day Essential] 1 EACH tablet
1 ea PO DAILY
atorvastatin 40 MG tablet
40 mg PO QPM
famotidine [Pepcid AC] 10 MG tablet
10 mg PO HS
ascorbic acid (vitamin C) [Vitamin C] 500 MG tablet
500 mg PO QPM
cholecalciferol (vitamin D3) [Vitamin D3] 400 UNITS tablet
400 unit PO HS
amlodipine [Norvasc] 10 mg Tablet
10 mg PO QPM
Discharge Orders:
Discharge Patient (As Directed); Ordered 08/23/24
Ordered By: Ron Downey
Discharge Date and Time
Print Language: BELGIAN
[2024-08-23] MEDS: LIPITOR 40 MG PO (17:46)
[2024-08-23] MEDS: NORVASC 10 MG PO (17:46)
[2024-08-23] MEDS: VITAMIN C 500 MG PO (17:46)
[2024-08-24 02:59] LABS: ANA, IgG Reflex to HEp-2 None Detected (None Detected)
[2024-08-25 18:57] LABS: Vitamin B1, Whole Blood 141 nmol/L (70-180)
[2024-08-27 01:39] LABS: Lyme Disease DNA by PCR Not Detected; Lyme Source CSF
== END 2024-08-23 19:05 | disposition home or self-care (01) | DRG 74 ==
LOC: 4 EAST ACU 10:31
PROVIDERS: Radiology Diagnostic Radiology; ADMITTING PHYSICIAN Hospitalist; ATTENDING PHYSICIAN Internal Medicine; CONSULT PHYSICIAN Psychiatry & Neurology Neurology; EMERGENCY PHYSICIAN Emergency Medicine; FAMILY PHYSICIAN Internal Medicine
PROC: 009U3ZX Drainage of Spinal Canal, Percutaneous Approach, Diagnostic (ICD-10-PCS; 2024-08-23)
PROC: B01B1ZZ Fluoroscopy of Spinal Cord using Low Osmolar Contrast (ICD-10-PCS; 2024-08-23)
DX: G62.9 Polyneuropathy, unspecified (principal); E78.5 Hyperlipidemia, unspecified; I10 Essential (primary) hypertension; G57.31 Lesion of lateral popliteal nerve, right lower limb; G43.909 Migraine, unspecified, not intractable, without status migrainosus; R32 Unspecified urinary incontinence; M48.02 Spinal stenosis, cervical region; R73.02 Impaired glucose tolerance (oral); E55.9 Vitamin D deficiency, unspecified; Q66.71 Congenital pes cavus, right foot; Q66.72 Congenital pes cavus, left foot; Z90.49 Acquired absence of other specified parts of digestive tract
CPT/HCPCS: 62328; 70450; 72157; 72158; 80048; 80053; 82164; 82607; 82945; 84155; 84157; 84165; 84425; 84443; 85025; 85610; 85652; 86038; 86140; 86592; 87015; 87070; 87205; 87476; 87483; 89051; 93971; 96374; 99285; A9575

== ENCOUNTER → 2024-09-25 12:53 | Outpatient (REF) | payer BC, SELFPAY | LOC: EMG 12:53 | PROVIDERS: ATTENDING PHYSICIAN Internal Medicine | DX: R20.0 Anesthesia of skin (principal); R29.898 Other symptoms and signs involving the musculoskeletal system | CPT/HCPCS: 95886; 95913 ==

== ENCOUNTER → 2024-10-02 09:27 | Outpatient (REF) | payer BC, SELFPAY | LOC: RAD 09:27 | PROVIDERS: ATTENDING PHYSICIAN Internal Medicine | DX: S93.401A Sprain of unspecified ligament of right ankle, initial encounter (principal) | CPT/HCPCS: 73630 ==

== ENCOUNTER → 2024-10-19 10:05 | Outpatient (REF) | payer BC, SELFPAY ==
[2024-10-19 11:04] LABS: Hematocrit 43.2 % (37.0-47.0); Hemoglobin 13.8 g/dL (12.0-16.0); Mean Corp Hgb Conc. 31.9 g/dL (33.0-37.0); Mean Corpuscular Volume 78.1 fL (81.0-99.0); Nucleated Red Blood Cells % 0 %; Platelet Count 152 10^3/uL (130-400); Red Cell Dist. Width 13.9 % (11.5-14.5)
[2024-10-19 11:31] LABS: ALT (SGPT) 16 U/L (0-35); AST (SGOT) 17 U/L (14-36); Albumin 4.4 g/dl (3.5-5.0); Alkaline Phosphatase 70 U/L (38-126); Blood Urea Nitrogen 16 mg/dl (7-17); Calcium 9.6 mg/dl (8.4-10.2); Carbon Dioxide 23 mmol/L (22-30); Chloride 111 mmol/L (98-107); Glucose 88 mg/dl (70-99); HDL Cholesterol 49 mg/dl; LDL Cholesterol, Calculated 148 mg/dl; Potassium 4.3 mmol/L (3.5-5.1); Sodium 141 mmol/L (135-145); Total Protein 6.8 g/dl (6.3-8.2); Very Low Density Lipoprotein 24 mg/dl (0-30); eGFR > 60.00
[2024-10-19 11:58] LABS: Vitamin D, 25-OH*** 33.8 ng/mL (30-80)
[2024-10-19 12:32] LABS: Vitamin B12 311 pg/ml (239-931)
== END ==
LOC: REG 10:05
PROVIDERS: ATTENDING PHYSICIAN Internal Medicine
DX: E55.9 Vitamin D deficiency, unspecified (principal); E78.00 Pure hypercholesterolemia, unspecified; I10 Essential (primary) hypertension; E53.8 Deficiency of other specified B group vitamins
CPT/HCPCS: 36415; 80053; 80061; 82306; 82607; 85025

== ENCOUNTER → 2024-10-21 13:47 | Outpatient (REF) | payer BC, SELFPAY | LOC: MRI 3T 13:47 | PROVIDERS: ATTENDING PHYSICIAN Psychiatry & Neurology Neurology; FAMILY PHYSICIAN Internal Medicine | DX: G95.9 Disease of spinal cord, unspecified (principal) | CPT/HCPCS: 72156; A9575 ==

== ENCOUNTER 2024-11-18 05:52 | Day surgery (SDC) | payer BC, SELFPAY ==
[2024-11-18] VITALS (8 sets, daily range): BP systolic 101–147; BP diastolic 43–74; BMI 24.7
== END 2024-11-18 10:19 | disposition home or self-care (01) ==
LOC: SDS 05:52
PROVIDERS: ATTENDING PHYSICIAN Orthopaedic Surgery Hand Surgery
DX: G56.02 Carpal tunnel syndrome, left upper limb (principal); G56.22 Lesion of ulnar nerve, left upper limb
CPT/HCPCS: 64718

== ENCOUNTER 2024-12-11 15:07 | Emergency (ER) | payer BC, SELFPAY ==
[2024-12-11 15:11] VITALS: BP 135/82
[2024-12-11 15:36] LABS: Hematocrit 40.3 % (37.0-47.0); Hemoglobin 13.1 g/dL (12.0-16.0); Mean Corp Hgb Conc. 32.5 g/dL (33.0-37.0); Mean Corpuscular Volume 78.1 fL (81.0-99.0); Nucleated Red Blood Cells % 0 %; Platelet Count 160 10^3/uL (130-400); Red Cell Dist. Width 13.6 % (11.5-14.5)
[2024-12-11 15:50] LABS: ALT (SGPT) 20 U/L (0-35); AST (SGOT) 21 U/L (14-36); Albumin 4.4 g/dl (3.5-5.0); Alkaline Phosphatase 74 U/L (38-126); Blood Urea Nitrogen 14 mg/dl (7-17); Calcium 8.8 mg/dl (8.4-10.2); Carbon Dioxide 26 mmol/L (22-30); Chloride 111 mmol/L (98-107); Glucose 121 mg/dl (70-99); Potassium 4.1 mmol/L (3.5-5.1); Sodium 142 mmol/L (135-145); Total Protein 6.5 g/dl (6.3-8.2); eGFR > 60.00
[2024-12-11 16:01] LABS: Troponin I < 0.012 ng/ml
== END 2024-12-11 17:30 | disposition left against medical advice (07) ==
LOC: EMR 15:07
PROVIDERS: EMERGENCY PHYSICIAN Emergency Medicine
DX: R07.9 Chest pain, unspecified (principal); Z53.21 Procedure and treatment not carried out due to patient leaving prior to being seen by health care provider
CPT/HCPCS: 80053; 84484; 85025; 93005